=== PATIENT | female | born 1970 | race Caucasian/White ===

== ENCOUNTER 2020-09-02 12:41 | Emergency (ER) | payer BC, SELFPAY ==
[2020-09-02 12:50] VITALS: BP 140/98; PULSE 85; RESP 20; TEMP 37.4; O2SAT 99
--- NOTE | 2020-09-02 13:02 | ED.EYEPROB ---
HPI - Eye Problem General Chief complaint: Eye Problems Stated complaint: right eye swollen Time Seen by Provider: 09/02/20 13:02 Source: RN notes reviewed Mode of arrival: ambulatory Limitations: no limitations History of Present Illness HPI Narrative: 50-year-old female who presents to [facility] with complaints of waking this morning with right eye redness, swelling and clear drainage. Patient states that her vision is blurry with photophobia and feelings of irritation to her eye. Patient states she initial felt some irritation to her right eye yesterday but symptoms increased this morning with acute redness and some swelling of her upper eyelid noted. Patient denies any injury to her right eye or any foreign body to right eye. Patient's visual acuity noted with right eye 20/70, left eye 20/40 with corrective lens. Patient denies any sharp pain to her right eye, eye movement unimpaired. MD chief complaint: eye pain, eye redness and other (increased tearing and photophobia) Onset (ago): day(s) (since yesterday) Duration: progressively worsening Location: right eye Eye Symptoms: burning, redness, blurry vision, photophobia and other (irritation) Mechanism: none Related Data Home Medications Medication Instructions Recorded Confirmed Synthroid 150 mcg PO HS 09/02/20 09/02/20 Tagamet 300 mg PO HS 09/02/20 09/02/20 bupropion HCl 150 mg PO HS 09/02/20 09/02/20 cyclobenzaprine 10 mg PO BID PRN 09/02/20 09/02/20 furosemide [Lasix] 20 mg PO HS 09/02/20 09/02/20 gabapentin 900 mg PO HS 09/02/20 09/02/20 hydrocodone-acetaminophen 1 tablet PO Q8H PRN 09/02/20 09/02/20 lansoprazole [Prevacid] 30 mg PO HS 09/02/20 09/02/20 ondansetron [Zofran ODT] 4 mg PO Q6H PRN 09/02/20 09/02/20 trazodone 100 mg PO HS 09/02/20 09/02/20 Allergies Allergy/AdvReac Type Severity Reaction Status Date / Time morphine Allergy Rash Verified 09/02/20 12:58 topiramate [From Topamax] Allergy Other Verified 09/02/20 12:58 [id number] Antimigraine Allergy Palpitation Verified 09/02/20 12:58 Agents s venlafaxine [From Effexor] Allergy Palpitation Verified 09/02/20 12:58 s Review of Systems Review of Systems: Narrative: CONSTITUTIONAL: Denies fever, chills, or sweats. EYES: Blurring of eyesight right eye with increase tearing, redness to right eye with photophobia,clear drainage with no matting noted,some swelling to upper eyelid ENT: Denies rhinorrhea, congestion, sore throat, or otalgia. CARDIOVASCULAR: Denies chest pain, palpitations, or edema. RESPIRATORY: Denies cough or dyspnea. GASTROINTESTINAL: Denies abdominal pain, nausea, vomiting, or diarrhea. GENITOURINARY: Denies dysuria or hematuria. SKIN: Denies rash or itching. MUSCULOSKELETAL: Denies back pain, joint pain, or myalgia. NEUROLOGIC: Denies headache, numbness, or weakness. PSYCHIATRIC: Positive history anxiety or depression. All systems reviewed & are unremarkable except as noted in HPI and below PMFSH Past Medical History Medical History (Updated 09/03/20 @ 11:13 by Karyna Rubi NP) Fibromyalgia GERD (gastroesophageal reflux disease) Hypertension Hypothyroid Insomnia Migraines Surgical History Surgical History (Updated 09/03/20 @ 11:14 by Karyna Rubi NP) H/O gastric bypass Hx of cholecystectomy Social History Social History (Updated 09/03/20 @ 11:19 by Karyna Rubi NP) Smoking status: Never smoker Alcohol intake: unknown Substance use: unknown Living arrangements: with family Gender identity (if verbalized by the patient): Female Comments At time of signature, agree with nursing past medical, surgical, social history. There is no relevant family history pertinent to the presenting complaint Exam Narrative: Exam Narrative: GENERAL: Well-appearing, well-nourished, and in no acute distress. HEAD: Normocephalic, atraumatic. EYES: PERRLA and EOMI. right eye conjunctiva red with excessive tearing and clear drainage with photophobia, eye
== END 2020-09-02 13:18 | disposition home or self-care (01) ==
PROVIDERS: Emergency Provider Registered Nurse; PCP Internal Medicine
DX: H10.9 Unspecified conjunctivitis (principal); M79.7 Fibromyalgia; K21.9 Gastro-esophageal reflux disease without esophagitis; I10 Essential (primary) hypertension; E03.9 Hypothyroidism, unspecified; Z98.84 Bariatric surgery status
CPT/HCPCS: 99213; G0463

== ENCOUNTER 2020-10-18 11:01 | Emergency (ER) | payer BC, SELFPAY ==
[2020-10-18 11:14] VITALS: BP 139/83; PULSE 86; RESP 18; TEMP 37.4; O2SAT 98
[2020-10-18 11:30] VITALS: BP 139/83; PULSE 86; RESP 18; TEMP 37.4; O2SAT 98
--- NOTE | 2020-10-18 11:32 | ED.EYEPROB ---
HPI - Eye Problem General Chief complaint: Eye Problems Stated complaint: right eye Source: patient Mode of arrival: ambulatory Limitations: no limitations History of Present Illness HPI Narrative: 50 y/o female. PMH includes: GERD, HTN, Hypothyroid. Presents to the [facility] today with acute complaints of RT eye irritation , increased lacrimation, as well as FB sensation for the past 48 hours. Client denies acute injury or eye trauma. States to have awoken in the AM, with spontaneous S/S onset. She notes she cannot open her eye because it is watering so much . No severe pain. No visual loss. She is without additional acute c/o upon PE. Related Data Home Medications Medication Instructions Recorded Confirmed Synthroid 150 mcg PO HS 09/02/20 10/18/20 Tagamet 300 mg PO HS 09/02/20 10/18/20 bupropion HCl 150 mg PO HS 09/02/20 10/18/20 cyclobenzaprine 10 mg PO BID PRN 09/02/20 10/18/20 furosemide [Lasix] 20 mg PO HS 09/02/20 10/18/20 gabapentin 900 mg PO HS 09/02/20 10/18/20 hydrocodone-acetaminophen 1 tablet PO Q8H PRN 09/02/20 10/18/20 lansoprazole [Prevacid] 30 mg PO HS 09/02/20 10/18/20 ondansetron [Zofran ODT] 4 mg PO Q6H PRN 09/02/20 10/18/20 trazodone 100 mg PO HS 09/02/20 10/18/20 Allergies Allergy/AdvReac Type Severity Reaction Status Date / Time morphine Allergy Rash Verified 10/18/20 11:29 topiramate [From Topamax] Allergy Other Verified 10/18/20 11:29 [id number] Antimigraine Allergy Palpitation Verified 10/18/20 11:29 Agents s venlafaxine [From Effexor] Allergy Palpitation Verified 10/18/20 11:29 s Review of Systems Review of Systems: Narrative: CONSTITUTIONAL: Denies fever, chills, sweats. EYES: Denies visual changes. Positive redness, lacrimation, discharge RT. ENT: Denies rhinorrhea, congestion, sore throat, otalgia. CARDIOVASCULAR: Denies chest pain, palpitations, edema. RESPIRATORY: Denies dyspnea, wheezing, cough GASTROINTESTINAL: Denies abdominal pain, nausea, vomiting, diarrhea. GENITOURINARY: Denies dysuria, hematuria, abnormal discharge SKIN: Denies rash or itching. MUSCULOSKELETAL: Denies acute back pain, joint pain, or myalgia. NEUROLOGIC: Denies numbness, or focal weakness. PSYCHIATRIC: Denies anxiety or depression. All systems reviewed & are unremarkable except as noted in HPI and below (HPI. ) [facility] Past Medical History Medical History Fibromyalgia GERD (gastroesophageal reflux disease) Hypertension Hypothyroid Insomnia Migraines Surgical History Surgical History H/O gastric bypass Hx of cholecystectomy Social History Social History Smoking status: Never smoker Alcohol intake: unknown Substance use: unknown Gender identity (if verbalized by the patient): Female Comments At the time of my signature I agree with nursing past medical history, surgical, social, and family history. There is no relevant family history pertinent to the presenting complaint. Exam Narrative: Exam Narrative: GENERAL: This is a well-nourished, well-developed patient, in no apparent distress. HEAD: normocephalic, atraumatic. EYES: PERRL. Topical anesthetic was instilled with good anesthesia using 1gtt of opth anesthetic agent (tetracaine). Fluorescein stain of the RT eye was performed with mild uptake of dye mostly to inner conjunctiva. No epithelial defect was noted. NO FB, ulcer or dendritic lesions. Upper lid was everted and no FB or lesions were noted. No Tristan sign. Normal saline irrigation eye solution was performed and the patient tolerated the procedure well, no adverse reaction or complications. Vision is intact. Client able to open her RT eye fully following instillation of anesthetic, and is without any noted visual deficits. EARS: External ears normal, auditory canals clear and without drainage,
== END 2020-10-18 11:41 | disposition home or self-care (01) ==
PROVIDERS: Emergency Provider Nurse Practitioner Adult Health; PCP Internal Medicine
DX: S05.01XA Injury of conjunctiva and corneal abrasion without foreign body, right eye, initial encounter (principal); X58.XXXA Exposure to other specified factors, initial encounter; M79.7 Fibromyalgia; K21.9 Gastro-esophageal reflux disease without esophagitis; E03.9 Hypothyroidism, unspecified; I10 Essential (primary) hypertension; Z98.84 Bariatric surgery status
CPT/HCPCS: 99213; A9270; G0463